=== PATIENT | female | born 1995 | race African-American/Black ===

== ENCOUNTER 2017-01-19 12:48 | Emergency (ER) | payer OTHER ==
[~2017-01-19] VITALS: Ht 172.7 cm; Wt 72.1 kg
[2017-01-19 13:10] VITALS: BP 136/85; PULSE 92; TEMP 36.7; O2SAT 98; Ht 172.7 cm; Wt 72.1 kg
--- NOTE | 2017-01-19 13:36 | EMERGENCY ROOM VISIT NOTE ---
History First contact with patient: 13:17 Chief Complaint: RECTAL PAIN Stated Complaint: SEVERELY IRRITATED/BURNING HEMORRHOID Nursing Triage Summary: triage note; pt reports "i have a hemorrhoid that i have had for over 4 months and it is very painful and ugly." History of Present Illness The patient is a 21 year old female who presents to the Emergency Room with complaints of rectal pain. The patient states that she has had a hemorrhoid for the past 4 months. She has been applying Preparation H and using Tucks pads. She has seen her primary care provider at home and she was prescribed a steroid cream which she also used without relief. She uses sitz baths at home. She is able to have bowel movements and states that initially she had blood in the stools, but no longer has any blood in the stools. She states that since returning to school this week, she has had worsening burning pain and itching. She rates the discomfort a 10/10. She states the pain worsens when she has a bowel movement. She denies any history of hemorrhoids prior to this. Review of Systems A complete 10 point review of systems was reviewed with the patient with pertinent positives and negatives as per history of present illness. All else were negative. Past Medical/Surgical History Medical Problems: (1) No significant past medical history Surgical Problems: (1) No significant past surgical history Social History Smoking Status: Current Some Day Smoker Alcohol Use: none Drug Use: none Marital Status: single Housing Status: lives with roommate Occupation Status: [employer] student Current/Historical Medications Unable to Obtain Active Prescriptions or Reported Meds Physical Exam Vital Signs Date Time Temp Pulse Resp B/P (MAP) Pulse Ox O2 Delivery O2 Flow Rate FiO2 01/19/17 13:10 36.7 92 18 136/85 98 Room Air Physical Exam VITALS: Vitals are noted on the nurse's note and reviewed by myself. Vital signs stable. GENERAL: This is a 21-year-old female, in no acute distress, nondiaphoretic, well-developed well-nourished. HEART: Regular rate and rhythm without murmurs gallops or rubs. LUNGS: Clear to auscultation bilaterally without wheezes, rales or rhonchi. ABDOMEN: Soft, nontender to palpation. RECTAL: There is a small internal hemorrhoid along the inferior aspect of the rectum with a small anal fissure. There is no thrombosed hemorrhoid. NEURO: Patient was alert and oriented to person place and time. Medical Decision & Procedures Medical Decision Differential diagnosis includes internal hemorrhoid, external hemorrhoid, thrombosed hemorrhoid, anal fissure, perirectal abscess, among others. The patient was evaluated as above. She has a small hemorrhoid and associated anal fissure. There is no evidence of abscess or infection. Conservative measures were discussed with the patient and she was encouraged to continue the use of sitz baths and mjsd-vum-rhyxsaf remedies. She was given referral to a general surgeon for definitive care. She verbalized understanding and was discharged home in good condition. Medication Reconcilliation Current Medication List: was personally reviewed by me Blood Pressure Screening Patient's blood pressure: Normal blood pressure Impression Primary Impression: Hemorrhoid Departure Information Dispostion Home / Self-Care Condition GOOD Prescriptions Unable to Obtain Active Prescriptions or Reported Meds Referrals No Doctor, Assigned (PCP) Bong Clark M.D. Patient Instructions ED Hemorrhoids, [facility] Additional Instructions Follow-up with Gen. surgery for further evaluation of your ongoing hemorrhoid. You should begin taking a stool softener such as Colace daily. This will help to avoid constipation and hard stools, which can worsen the hemorrhoid. Return to the emergency department with any redness/swelling of the area, fevers , or any other new/concerning symptoms. Problem Qualifiers Primary Impression: Hemorrhoid
== END 2017-01-19 14:45 | disposition home or self-care (01) ==
LOC: C.EDB 12:50
DX: K64.8 Other hemorrhoids (principal); K60.2 Anal fissure, unspecified; F17.210 Nicotine dependence, cigarettes, uncomplicated

== ENCOUNTER 2017-03-08 11:34 | Emergency (ER) | payer OTHER ==
[~2017-03-08] VITALS: Ht 172.7 cm; Wt 70.3 kg
[2017-03-08 11:36] VITALS: TEMP 37.3; Ht 172.7 cm; Wt 70.3 kg
[2017-03-08] MEDS ORDERED: ONDANSETRON INJ 2 MG/ML 2 ML VIAL IV STA (11:58)
[2017-03-08] MEDS ORDERED: SODIUM CHLORIDE 0.9% 1000ML 1,000 ML IV STA (11:58)
--- NOTE | 2017-03-08 12:22 | EMERGENCY ROOM VISIT NOTE ---
History First contact with patient: 11:40 Chief Complaint: VOMITING Stated Complaint: THROWING UP GREEN STUFF, HEADACHE, CANT SLEEP, History of Present Illness The patient is a 21 year old female who presents to the Emergency Room with complaints of cough, congestion since yesterday, and now starting to have nausea and vomiting since this morning. She states she has been vomiting bile. She has associated headache, chills, sore throat, and generally feeling achy all over. She has taken Tylenol this morning, which she states helped her headache, sore throat, and aches. She does admit to daily marijuana use, 2-3 times a day. She reports a history of gastritis and states that she has a sensitive stomach, however she does not take any medications to treat this. Last menstrual period was "a few years ago because I am on Depo-Provera." She denies any chest pain, shortness of breath, abdominal pain, back pain, diarrhea or constipation, urinary symptoms, rash. Review of Systems A complete 10 point review of systems was reviewed with the patient with pertinent positives and negatives as per history of present illness. All else were negative. Past Medical/Surgical History Medical Problems: (1) No significant past medical history Surgical Problems: (1) No significant past surgical history Social History Smoking Status: Current Every Day Smoker Alcohol Use: none Drug Use: marijuana (daily) Marital Status: single Housing Status: lives with roommate Occupation Status: [employer] student Current/Historical Medications Scheduled Ondasetron Odt (Zofran Odt), 4 MG SL Q6H Physical Exam Vital Signs Date Time Temp Pulse Resp B/P (MAP) Pulse Ox O2 Delivery O2 Flow Rate FiO2 03/08/17 14:54 90 17 96/68 97 03/08/17 14:04 90 17 88/61 97 Room Air 03/08/17 11:36 37.3 109 17 115/78 94 Room Air Physical Exam CONSTITUTIONAL: No acute distress, but appears uncomfortable. Mildly dehydrated , but otherwise well appearing and well nourished. Alert and oriented X 4 with normal affect. HEENT: Normocephalic, atraumatic. Pupils equal, round and reactive to light, EOMI. TMs normal. Pharynx normal. No sinus tenderness to palpation. Tacky mucous membranes. NECK: Supple, full active range of motion without discomfort. No cervical adenopathy. RESPIRATORY: Clear to auscultation bilaterally with no wheezing, crackles, rhonchi or stridor. Equal expansion bilaterally. CARDIOVASCULAR: Regular rate and rhythm with no murmurs, rubs or gallops. Normal peripheral perfusion. No edema. GASTROINTESTINAL: Soft, mildly tender in the epigastric region, otherwise nontender, nondistended. Bowel sounds present in all quadrants. MUSCULOSKELETAL: Full range of motion of all joints without discomfort. INTEGUMENTARY: No rash or other significant dermatologic conditions noted. NEUROLOGIC: Cranial nerves II-XII grossly intact. No focal neurologic deficits noted. Medical Decision & Procedures ER Provider Diagnostic Interpretation: CHEST 2 VIEWS ROUTINE HISTORY: 21 years-old Female cough, congestion, fevers, chest tightness, eval pna acute cough and congestion with fever COMPARISON: None available TECHNIQUE: Frontal and lateral views of the chest FINDINGS: Cardiomediastinal and hilar silhouettes are within normal limits. There is no pneumothorax or pleural effusion. Hazy opacity projecting over the right middle lobe region on the frontal view is favored to reflect composite tissue artifact. No focal airspace consolidation to suggest pneumonia. The bones of the chest appear grossly intact. IMPRESSION: No acute cardiopulmonary process. No focal airspace consolidation to suggest pneumonia. Laboratory Results 03/08/17 12:15 Red Blood Count 4.71, Mean Corpuscular Volume 91.9, Mean Corpuscular Hemoglobin 32.3, Mean Corpuscular Hemoglobin Concent 35.1, Mean Platelet Volume 9.8, Neutrophils (%) (Auto) 85.0, Lymphocytes (%) (Auto) 6.5, Monocytes (%) (Auto) 6.9, Eosinophils (%) (Auto) 0.9, Basophils (%) (Auto) 0.5, Neutrophils # (Auto) 8.63, Lymphocytes # (Auto) 0.66, Monocytes # (Auto) 0.70, Eosinophils # (Auto) 0.09, Basophils # (Auto) 0.05 03/08/17 12:15 Test 03/08/17 11:58 03/08/17 12:11 03/08/17 12:15 Urine Test NEG (NEG) White Blood Count 10.15 K/uL (4.8-10.8) Red Blood Count 4.71 M/uL (4.2-5.4) Hemoglobin 15.2 g/dL (12.0-16.0) Hematocrit 43.3 % (37-47) Mean Corpuscular Volume 91.9 fL (80-100) Mean Corpuscular Hemoglobin 32.3 pg (25-34) Mean Corpuscular Hemoglobin Concent 35.1 g/dl (32-36) Platelet Count 205 K/uL (130-400) Mean Platelet Volume 9.8 fL (7.4-10.4) Neutrophils (%) (Auto) 85.0 % Lymphocytes (%) (Auto) 6.5 % Monocytes (%) (Auto) 6.9 % Eosinophils (%) (Auto) 0.9 % Basophils (%) (Auto) 0.5 % Neutrophils # (Auto) 8.63 K/uL (1.4-6.5) Lymphocytes # (Auto) 0.66 K/uL (1.2-3.4) Monocytes # (Auto) 0.70 K/uL (0.11-0.59) Eosinophils # (Auto) 0.09 K/uL (0-0.5) Basophils # (Auto) 0.05 K/uL (0-0.2) RDW Standard Deviation 42.3 fL (36.4-46.3) RDW Coefficient of Variation 12.5 % (11.5-14.5) Immature Granulocyte % (Auto) 0.2 % Immature Granulocyte # (Auto) 0.02 K/uL (0.00-0.02) Anion Gap 8.0 mmol/L (3-11) Est Creatinine Clear Calc Drug Dose 111.2 ml/min Estimated GFR () 121.3 Estimated GFR (Non- 104.7 BUN/Creatinine Ratio 14.0 (10-20) Calcium Level 8.9 mg/dl (8.5-10.1) Total Bilirubin 1.0 mg/dl (0.2-1) Direct Bilirubin 0.2 mg/dl (0-0.2) Aspartate Amino Transf (AST/SGOT) 15 U/L (15-37) Alanine Aminotransferase (ALT/SGPT) 13 U/L (12-78) Alkaline Phosphatase 61 U/L (45-117) Total Protein 7.3 gm/dl (6.4-8.2) Albumin 3.9 gm/dl (3.4-5.0) Lipase 58 U/L (73-393) Medications Administered Medications (Trade) Dose Ordered Sig/Randolph Route Start Time Stop Time Status Last Admin Dose Admin Sodium Chloride 1,000 ml @ 999 mls/hr Q1H1M STAT IV 03/08/17 11:58 03/08/17 12:58 DC 03/08/17 12:22 999 MLS/HR Ondansetron HCl (Zofran Inj) 4 mg NOW STAT IV 03/08/17 11:58 03/08/17 12:01 DC 03/08/17 12:22 4 MG Medical Decision CC: Patient presenting with complaint of cough, congestion, vomiting Interpretation of Labs: No leukocytosis, no anemia, mild hyponatremia, no other significant electrolyte abnormalities, normal renal function, normal liver enzymes and lipase. Negative urine . Differential Diagnosis: Includes, but not limited to viral illness, bronchitis, viral URI, pneumonia, gastroenteritis, gastritis, peptic ulcer disease, cystitis , cholelithiasis, pancreatitis, dehydration, among others. Medication Reconciliation: I attest that I have personally reviewed the patient' s current medication list. Vital signs review: I reviewed the patient's vital signs and interpret them as follows: T: Afebrile (low-grade); BP: Normotensive; HR: Tachycardic; RR: Within normal limits; Pulse Ox: Within normal limits on room air. Summary: Patient was evaluated at bedside, history of physical exam performed. Patient is alert and oriented, in no acute distress, resting calmly in the stretcher. She is mildly tender in the epigastric region to palpation, complaining of nausea. Lungs are clear, but she is complaining of chest tightness with the cough. Patient does note that her main concern today is the nausea and vomiting. Orders were placed at bedside for labs, urine , IV fluids for hydration , IV Zofran for nausea, chest x-ray to evaluate for pneumonia. Patient discussed with Dr. Castro, who agrees with my assessment and plan. Labs reviewed as above, unremarkable. Chest x-ray is unremarkable. Patient reassessed multiple times throughout ED stay, she reports feeling much improved after IV fluids and Zofran. Tachycardia resolved after IV fluids. She is now tolerating PO well. Rx for Zofran sent to pharmacy. I discussed all results with the patient and plan for discharge home. I encouraged her to follow up with her PCP. I also discussed return precautions should her symptoms worsen in any way, she verbalized understanding. Patient was discharged home in stable condition and ambulatory. Impression Primary Impression: Nausea and vomiting Additional Impression: URI (upper respiratory infection) Departure Information Dispostion Home / Self-Care Condition GOOD Prescriptions Ondasetron Odt (ZOFRAN ODT) 4 Mg Tab 4 MG SL Q6H for Nausea, #6 TAB Prov: Lesli Benito, [employer]INE OPERATOR 03/08/17 Referrals No Doctor, Assigned (PCP) Patient Instructions ED Nausea Vomiting, ED URI Viral, [facility] Additional Instructions You have been treated in the Emergency Department your cough/congestion and nausea/vomiting. Laboratory results and imaging studies have ruled out any emergent causes for your symptoms which would warrant admission or surgery. You have been prescribed Zofran to be used as needed for any nausea or vomiting. Take as prescribed. For pain control, you can use the following [id number] medicines (if >12 yo): - Regular strength (325mg/tab) Tylenol (acetaminophen) 2 tabs every 4-6 hours as needed. Do not exceed 10 tablets in a 24 hour period. Avoid taking more than 3000 mg of Tylenol per day. This includes any other sources of acetaminophen you may take on a regular basis. - Regular strength (200 mg/tab) Advil (ibuprofen) 1-2 tabs every 4-6 hours as needed. Do not exceed a dose of 2400 mg per day. Drink plenty of fluids and stay well hydrated. As with any trip to the Emergency Department, you should follow-up with your Primary Care Provider in the next few days. Return to the emergency department for any worsening symptoms, including severe abdominal pain, worsening nausea/vomiting, vomiting blood, blood in her stool or urine, persistent fevers/chills, or any other concerns. Work Instructions Return To Work: 1 day School Instructions Return To School: 1 day Problem Qualifiers Primary Impression: Nausea and vomiting Vomiting type: unspecified Vomiting Intractability: non-intractable Qualified Codes: R11.2 - Nausea with vomiting, unspecified Additional Impression: URI (upper respiratory infection) URI type: unspecified URI Qualified Codes: J06.9 - Acute upper respiratory infection, unspecified
--- NOTE | 2017-03-08 12:54 | DIAGNOSTIC IMAGING REPORT ---
CHEST 2 VIEWS ROUTINE HISTORY: 21 years-old Female cough, congestion, fevers, chest tightness, eval pna acute cough and congestion with fever COMPARISON: None available TECHNIQUE: Frontal and lateral views of the chest FINDINGS: Cardiomediastinal and hilar silhouettes are within normal limits. There is no pneumothorax or pleural effusion. Hazy opacity projecting over the right middle lobe region on the frontal view is favored to reflect composite tissue artifact. No focal airspace consolidation to suggest pneumonia. The bones of the chest appear grossly intact. IMPRESSION: No acute cardiopulmonary process. No focal airspace consolidation to suggest pneumonia. The above report was generated using voice recognition software. It may contain grammatical, syntax or spelling errors. Electronically signed by: Moreno Michele M.D. 03/08/2017 12:53 PM Dictated Date/Time: 03/08/2017 12:51 PM
[2017-03-08 13:18] LABS: BASO % 0.5 %; BASO ABS # 0.05 K/uL (0-0.2); COMPLETE YES; EOS % 0.9 %; HEMATOCRIT 43.3 % (37-47); IG% 0.2 %; LYMPH % 6.5 %; LYMPH ABS # 0.66 K/uL (1.2-3.4); MEAN CELL VOLUME 91.9 fL (80-100); MEAN CORPUSCULAR HEMOGLOBIN 32.3 pg (25-34); MEAN CORPUSCULAR HGB CONC 35.1 g/dl (32-36); MEAN PLATELET VOLUME 9.8 fL (7.4-10.4); MONO % 6.9 %; PLATELET COUNT 205 K/uL (130-400); RED BLOOD COUNT 4.71 M/uL (4.2-5.4); WHITE BLOOD COUNT 10.15 K/uL (4.8-10.8)
[2017-03-08 13:26] LABS: CALCIUM 8.9 mg/dl (8.5-10.1); CREATININE 0.8 mg/dl (0.60-1.20); POTASSIUM 3.4 mmol/L (3.5-5.1)
[2017-03-08] MEDS ORDERED: ONDA4TAB10 SL (14:38)
[2017-03-08 14:54] VITALS: BP 96/68; PULSE 90; O2SAT 97
--- NOTE | 2017-03-08 17:26 | Pharmacy Progress Note ---
ED Pharmacist Progress Note Date of Service: Mar 08, 2017. The patient called saying that she is unable to get the Rx for Zofran ODT filled at [facility] as they are closed until Saturday. I called the [facility] pharmacy and they are in fact closed as of 5pm today. I called the Rx for Zofran ODT 4mg one SL Q 6 hrs PRN nausea, # 6, no refills, auth by Catia DAWSON to [facility] pharmacy [address] ([phone]) per patient's request and faxed [facility] stating with a message to cancel the Rx for Zofran ODT sent to them electronically.
[2017-03-08 18:21] LABS: URINE APPEARANCE CLOUDY (CLEAR); URINE BILIRUBIN NEG (NEG); URINE COLOR DK YELLOW; URINE EPITHELIAL CELL AUTO >30 /lpf (0-5); URINE NITRITE NEG (NEG); URINE PH 5.5 (4.5-7.5); UROBILINOGEN NEG (NEG)
[2017-03-08 18:22] LABS: MANUAL MICROSCOPIC REQUIRED? NO; REVIEW REQ? NO
== END 2017-03-08 14:54 | disposition home or self-care (01) ==
LOC: C.EDB 11:36
DX: R11.2 Nausea with vomiting, unspecified (principal); J06.9 Acute upper respiratory infection, unspecified; F17.200 Nicotine dependence, unspecified, uncomplicated